=== PATIENT | female | born 1940 | race Caucasian/White ===

== ENCOUNTER 2016-08-04 13:09 | Emergency (ER) | payer MEDICARE, OTHER ==
--- OUTSIDE RECORDS SUMMARY | 2016-08-04 13:56 | XMS REPORT | Continuity of Care Document ---
:1940 Author Organization [employer] Address [place] [address] Care Team Providers Name Role Phone Krystyna Jensen Primary Care Provider [phone] Source Comments This disclosure is being made pursuant to the Savor program and maynot contain all information available regarding this patient.[employer] Active Allergies and Adverse Reactions Allergen Noted Date Severity Reactions Comments Iodine 08/05/2015 Low Itching Tetracycline 11/15/2013 Low Itching Current Medications Be aware that medications may not be up to date as of this document. Alwaysverify current medications with the patient. Prescription Sig. Disp. Refills Start Date End Date Status triamcinolone Apply BID, Called 454 g 0 01/11/2014 Active (KENALOG) 0.1 % cream to Pharmacy. VO order to pharmacy per Dr. Morris request clobetasol (TEMOVATE) Apply to affected 30 g 2 04/06/2014 Active 0.05 % cream area twice daily when flared for no longer than 7 days out of each month aspirin 81 MG EC Take 81 mg by Active tablet mouth daily. Glimepiride (AMARYL Take 1 tablet by Active PO) mouth daily. econazole nitrate 1 % Apply to the 85 g 3 09/28/2014 Active cream affected areas twice daily after vinegar soaks diflorasone-emollient Apply a thin 60 each 12 10/20/2014 Active (APEXICON E) 0.05 % layer to skin CREA twice daily for up to 10 days. No not apply on face or ears. 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 gabapentin (NEURONTIN) Take 1 capsule by 90 capsule 11 09/06/2015 Active 300 MG capsule mouth 3 (three) times daily. Secukinumab 150 MG/ML INJECT 300 MG 6 pen 11 09/22/2015 Active SOAJ EVERY 4 WEEKS HYDROcodone-acetaminop TAKE ONE OR TWO 240 tablet 0 01/02/2016 Active hen (NORCO) 10-325 MG TABLETS EVERY 6 per tablet HOURS IF NEEDED FOR PAIN. NO MORE THAN 8 TABLETS PER DAY. nortriptyline Take 1 capsule by 90 capsule 11 04/30/2016 Active (PAMELOR) 10 MG mouth 3 (three) capsule times daily. 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 Psoriatic arthritis ([facility]) 11/16/2013 Most Recent Encounters Date Type Specialty Providers Description 07/12/2016 Data Import Social History Tobacco Use Types Packs/Day Years Used Date Never Smoker Smokeless Tobacco: Never Used Alcohol Use Drinks/Week oz/Week Comments No Alcoholic Drinks/day: ALCOHOL USE: NON-DRINKER Last Filed Vital Signs Vital Sign Reading Time Taken Blood Pressure 162/81 04/30/2016 10:48 AM ROOM CLERK Pulse 79 04/30/2016 10:48 AM ROOM CLERK Temperature 36.6 C (97.9 F) 08/05/2015 11:24 AM CDT Respiratory Rate 18 08/05/2015 11:24 AM CDT Height 1.524 m (5') 02/21/2016 1:34 PM ROOM CLERK Weight 80.74 kg (178 lb) 04/30/2016 10:48 AM ROOM CLERK Body Mass Index 34.76 04/30/2016 10:48 AM ROOM CLERK Oxygen Saturation 97% 08/05/2015 11:24 AM CDT Plan of Care Date Type Specialty Providers Description 08/21/2016 Appointment Rheumatology Tomer Morris MD [address] [place] [phone] (Fax) Health Maintenance Due Date Last Done Comments Tetanus/Pertussis (1 - Tdap) 1958 Well Adult Visit 1989 Zoster Vaccine 60+ 1999 Bone Density 2004 Pneumococcal Low/Medium Risk 65+ (1 of 2 - PCV13) 2004 Influenza Immunization (#1) 2015 Results from Last 3 Months Not on file
--- OUTSIDE RECORDS SUMMARY | 2016-08-04 13:56 | XMS REPORT | Continuity of Care Document ---
:1940 Author Organization [facility] ([facility]) Address [address] [place] [address] Phone [phone] Care Team Providers Name Role Phone Jass Shetty Primary Care Provider [phone] Source Comments This disclosure is being made pursuant to the Care Everywhere program, applicable federal and state laws, and may not contain all informaitonavailable regarding this patient.[facility] ([facility]) Active Allergies and Adverse Reactions Allergen Noted Date Severity Reactions Comments Iodine 09/17/2011 OTHER Tetracycline 09/17/2011 OTHER Current Medications Prescription Sig. Disp. Refills Start Date End Date Status DOCUSATE CALCIUM Take by mouth. Active (STOOL SOFTENER PO) sulfaSALAzine 500 mg Take 3 Tabs by mouth 180 Tab 6 12/03/2011 Active EC tablet 2 times daily. 1 tab 2x/day x 1 week then 2 tab 2x/day x 1 week then 3 tab 2x/day Indications: psoriatic arthritis clindamycin 300 mg Take 1 Cap by mouth 3 21 Cap 0 12/18/2011 Active capsule times daily. Indications: STAPHYLOCOCCUS AUREUS SKIN AND SKIN STRUCTURE INFECTION HYDROcodone-acetamino Take 1 Tab by mouth 180 Tab 0 12/28/2011 Active phen 5-325 mg per every 4 hours as tablet needed. Indications: PAIN omeprazole 20 mg Take 1 Cap by mouth 30 Cap 6 12/28/2011 Active extended release daily. Indications: capsule PREVENTION OF STRESS ULCER predniSONE 10 mg Take 3 Tabs by mouth 42 Tab 2 12/28/2011 Active tablet daily. Indications: PSORIATIC ARTHRITIS methotrexate 2.5 mg Take 10 Tabs by mouth 40 Tab 6 12/28/2011 Active tablet every week. 5 tabs in the morning and 5 tabs in the evening once per week Indications: PSORIATIC ARTHRITIS folic acid 1 mg Take 1 Tab by mouth 30 Tab 6 12/28/2011 Active tablet daily. Indications: methotrexate use Active Problems Problem Noted Date Psoriatic arthritis 12/04/2011 Overview: Longstanding psoriasis with some joint pain. Was on Humira for psoriasis but then had to stop (presumably for $ reasons). Psoriatic arthritis flared after that. Sacroiliitis on Aparicio view as well. Methotrexate started by supply chain logistics manager Sulfasalazine added 11/24 Psoriasis 09/17/2011 S/P breast biopsy 09/17/2011 S/P cholecystectomy 09/17/2011 S/P hysterectomy 09/17/2011 Social History Tobacco Use Types Packs/Day Years Used Date Never Assessed Smokeless Tobacco: Never Used Alcohol Use Drinks/Week oz/Week Comments No Last Filed Vital Signs Vital Sign Reading Time Taken Blood Pressure 137/95 12/28/2011 10:59 AM CDT Pulse 88 12/28/2011 10:59 AM CDT Temperature 36.3 C (97.3 F) 12/28/2011 10:59 AM CDT Respiratory Rate - - Height 1.51 m (4' 11.45") 09/17/2011 1:07 PM CDT Weight 82.2 kg (181 lb 3.5 oz) 12/28/2011 10:59 AM CDT Body Mass Index 36.05 12/28/2011 10:59 AM CDT Oxygen Saturation - - Plan of Care Health Maintenance Due Date Last Done Comments Hepatitis B Vaccine (1 of 3 - Primary Series) 1940 Tdap Vaccine 1950 Lipid Disorder Screening 1957 Td Vaccine 1957 Mammogram 1979 Colonoscopy 04/12/1989 Zoster Vaccine 1999 Osteoporosis Screening (DXA Bone Density) 2004 Pneumococcal Vaccine (1 of 2 - PCV13) 2004 Influenza Vaccine: Seasonal (#1) 11/14/2015 Results from Last 3 Months Not on file
[2016-08-04 13:57] LABS: Hematocrit 47.3 % (37.0-47.0); Mean Cell Volume 85.4 fl (78-100); Mean Corpuscular Hemoglobin 28.9 pg (27-31); Mean Corpuscular Hgb Conc 33.8 g/dl (32-36); Mean Platelet Volume 9.2 fl (6.0-9.5); Neutrophil # 6.4 K/mm3 (1.3-6.0); Neutrophil % 71.6 % (42-75.0); Platelet Count 215 K/mm3 (150-450); Red Blood Count 5.54 M/mm3 (4.2-5.4); Red Cell Distribution Width 12.5 % (11.5-14.0)
[2016-08-04 14:14] LABS: Albumin * 3.8 gm/dl (3.4-5.0); BUN/Creatinine Ratio 14.3 (9.0-21.6); Bilirubin, Total 0.7 mg/dL (0.0-1.1); Ca. Corrected For Albumin 8.6 mg/dL (8.4-10.2); Calcium * 8.8 mg/dL (7.9-10.9); Potassium 3.6 mmol/L (3.4-4.6); Total Protein 7.7 gm/dL (6.2-8.2)
[2016-08-04 14:18] LABS: Anion Gap 11.2 mmol/L (6.8-13.8); Carbon Dioxide 31.4 mmol/L (24-32.6)
[2016-08-04] MEDS ORDERED: KETOROLAC TROMETHAMINE 30 MG/ML VIAL ONE (16:49)
[2016-08-04] MEDS ORDERED: KETOROLAC TROMETHAMINE 30 MG/ML VIAL IM ONE (16:51)
--- NOTE | 2016-08-04 17:29 | ERNOTE ---
Abdominal HPI - Narrative Date of Service: 08/04/16 - General Chief Complaint: Abdominal Pain Time Seen by Provider: 08/04/16 13:47 Source: patient Exam Limitations: no limitations - Immun/Allergies/Home Medications Immunizatons: IMMUNIZATION HX Immunizations Up to Date Yes History of Influenza Vaccine Yes Hx Pneumococcal Vaccination No Allergies/Adverse Reactions: Allergies iodine Allergy (Mild, Verified 08/04/16 13:30) tetracycline [Tetracycline] Allergy (Mild, Verified 08/04/16 13:30) morphine Adverse Reaction (Severe, Verified 08/04/16 13:30) Vomiting Home Medications: HOME MEDICATIONS Ustekinumab [Stelara] 45 mg SQ 08/31/13 [Last Taken Unknown] Dicyclomine HCl [Bentyl] 10 mg PO Q8H #6 capsule 08/04/16 [Last Taken Unknown] - History of Present Illness Narrative: Patient comes due to lower abdominal pain. Patient was send from the clinic for further evaluation. Patient has Hx of Cancer and is under treatment. Timing: constant Quality: moderate Activities at Onset: none Modifying Factors - (Improves): Present: other - nothing Modifying Factors - (Worsens): Present: movement Associated Symptoms: Absent: headache, chest pain, neck pain, diaphoresis, diarrhea-gross blood, diarrhea-mucous, fatigue, fever/chills, heartburn, nausea , vomiting, loss of appetite, shortness of breath, swelling/mass in abdomen, syncope, weakness Prior Abdominal Problems: Present: none Prior Treatment: Present: recently seen - Patient was evaluated at clinic and send for further work up Review of Systems - Review of Systems Constitutional: Present: malaise. Absent: fever, chills EYE: Present: no symptoms reported ENT: Present: no symptoms reported Respiratory: Present: no symptoms reported Cardiology: Present: no symptoms reported Gastrointestinal/Abdominal: Present: nausea, abdominal pain Genitourinary: Present: no symptoms reported Musculoskeletal: Present: no symptoms reported Skin: Present: no symptoms reported Neurological: Present: no symptoms reported Endocrine: Present: no symptoms reported Hematologic/Lymphatic: Present: no symptoms reported Psych: Present: no symptoms reported All Other Systems: All systems neg except as marked - Patient's Past Medical History Patient History - Medical: Diabetes Type 2, Osteoarthritis, Other Patient History - Cardiac/Respiratory: Bronchitis, Hyperlipidemia, Pneumonia Patient History - Cancer: No Hx of Cancer Patient History - Surgical Procedures: Appendectomy, Cholecystectomy, Hysterectomy, Other Patient History - Other: None LMP (females 10-50): Menopausal - Social History Living Situations: home Psych History: No pertinent hx Smoking Status: Never smoker - Immunizations Immunizations Up to Date: Yes Hx Pneumococcal Vaccination: No History of Influenza Vaccine: Yes Physical Exam - Physical Exam General Appearance: Present: wd/wn, alert, no apparent distress Ears, Nose, Throat: Present: normal ENT inspection, normal pharynx Neck: Present: normal inspection, nontender Respiratory: Present: no respiratory distress, normal breath sounds, no accessory muscle use, chest nontender, lungs clear Cardiovascular/Chest: Present: regular rate, rhythm, no murmur, normal peripheral pulses Gastrointestinal/Abdominal: Present: tenderness - lower abdomen, distended - mild, guarding. Absent: rebound Back Exam: Present: normal inspection, normal range of motion, no CVA tenderness , no vertebral tenderness Extremity Exam: Present: normal inspection, non-tender, normal range of motion, no edema Neurological Exam: Present: alert, oriented, normal mood/affect, no motor/ sensory deficits Skin Exam: Present: normal color, warm/dry Lymphatic Exam: Present: no adenopathy ED Progress - Date and Time Seen: Date and Time: 08/04/16 17:27 Patient persist with pain on the lower abdomen area. Patient will be done CT of the Abd. Pelvis. Patient had UA done at clinic that was reported negative to patient. Patient refused to have UA at Hospital. 08/04/16 18:33 Patient with a no pathology on CT and a non surgical abdomen. Patient with constipation on KUB, Tx will be given and patient will be discharge home and is to follow up with PCP. - Results and Orders Patient's Lab Results:: I have reviewed the patient's lab results. Results and Orders: CBC: WNL CMP: Hyperglycemia Marleny/Lipase: Negative - Vital Signs Patient's Vital Signs:: I have reviewed the patient's vital signs. Vital Signs: Vital Signs 08/04/16 13:24 Temperature 36.9 C Pulse Rate 88 Respiratory 16 Rate Blood Pressure 163/86 O2 Sat by Pulse 95 Oximetry - X-Ray X-Ray #1 X-Ray: abdomen X-ray Comments: Constipation. Radiology reported noticed - CT/Ultrasound CT/Ultrasound Narrative: CT Abd-Pelvis: No acute intra-abdominal or pelvic process reported by Radiologist. - Progress/Reassessment Chief Complaint: Abdominal Pain Progress:: Improved - Transfer of Care Expected Disposition: Discharge Plan - Plan Plan: Follow up with PCP Departure - Departure Clinical Impression: Abdominal pain Qualifiers: Abdominal location: unspecified location Qualified Code(s): R10.9 - Unspecified abdominal pain Constipation Qualifiers: Constipation type: unspecified constipation type Qualified Code(s): K59.00 - Constipation, unspecified Disposition: Home self-care Condition: Stable Instructions: Abdominal Pain, Adult, [id number], Constipation, Adult, Easy-to -Read Referrals: Krystyna Jensen MD [Primary Care Provider] - Prescriptions: Dicyclomine HCl [Bentyl] 10 mg PO Q8H #6 capsule
[2016-08-04 18:15] VITALS: BP 190/86
[2016-08-04] MEDS ORDERED: SOD CHLORIDE/NAHCO3/KCL/PEG'S 4,000 ML BTL ONE (18:47)
== END 2016-08-04 19:02 | disposition home or self-care (01) ==
LOC: ER 13:09
DX: K59.00 Constipation, unspecified (principal); R10.30 Lower abdominal pain, unspecified